=== PATIENT | male | born 1960 | race Caucasian/White ===

== ENCOUNTER 2023-05-01 06:45 | Outpatient (RCR) | payer OTHER, SELFPAY | END 2023-05-01 23:59 | disposition home or self-care (01) | LOC: RST 06:45 | PROVIDERS: ATTENDING PHYSICIAN Otolaryngology Otolaryngology/Facial Plastic Surgery; FAMILY PHYSICIAN Family Medicine | DX: G20.A1 Parkinson's disease without dyskinesia, without mention of fluctuations (principal); R49.0 Dysphonia; R47.1 Dysarthria and anarthria | CPT/HCPCS: 92507; 92524 ==

== ENCOUNTER 2023-05-22 10:55 | Outpatient (RCR) | payer OTHER, SELFPAY | END 2023-05-22 14:14 | disposition home or self-care (01) | LOC: RST 10:55 | PROVIDERS: ATTENDING PHYSICIAN Otolaryngology Otolaryngology/Facial Plastic Surgery; FAMILY PHYSICIAN Family Medicine | DX: G20.C Parkinsonism, unspecified (principal); R49.0 Dysphonia; R47.1 Dysarthria and anarthria | CPT/HCPCS: 92507 ==